=== PATIENT | female | born 1950 | race Caucasian/White ===

== ENCOUNTER 2016-08-04 15:55 | Emergency (ER) | payer MEDICAID ==
[~2016-08-04] VITALS: Ht 160 cm; Wt 62.0 kg
[2016-08-04] MEDS ORDERED: DIPH,PERTUSS(ACELL),TET VAC/PF 0.5 ML IM-VACC ONE ×2 (16:42→17:00)
[2016-08-04] MEDS ORDERED: L.E.T SOLUTION TP ONE ×2 (16:43→17:00)
[2016-08-04] MEDS ORDERED: SODIUM CHLORIDE 0.9% 1,000ML IVBOLUS ONE (17:00)
[2016-08-04] MEDS ORDERED: SODIUM CHLORIDE FLUSH 10ML SYR IVF ONE (17:00)
[2016-08-04] MEDS ORDERED: LIDOCAINE 1%-EPI 1:100K, 20ML SQ ONE ×2 (17:00→17:30)
[2016-08-04 17:19] LABS: BLOOD UREA NITROGEN 13 mg/dL (7-18)
[2016-08-04 18:48] VITALS: BP 166/88
== END 2016-08-04 19:00 | disposition home or self-care (01) ==
LOC: ED 18:54
DX: S01.01XA Laceration without foreign body of scalp, initial encounter (principal); I10 Essential (primary) hypertension; D72.829 Elevated white blood cell count, unspecified; W19.XXXA Unspecified fall, initial encounter; Y93.89 Activity, other specified; Y99.8 Other external cause status; Y92.89 Other specified places as the place of occurrence of the external cause
CPT/HCPCS: 12002; 36415; 70450; 71010; 80048; 82040; 85025; 93005; 96360; 99285; J7030